=== PATIENT | female | born 1995 | race Caucasian/White ===

== ENCOUNTER → 2017-06-18 | Outpatient (CLI) | payer OTHER ==
[~2017-06-18] MED LIST: AMPH20TA2 PO; BCPILLS PO
== END | disposition home or self-care (01) ==
LOC: C.LABSPEC 13:14
PROVIDERS: ATTEND Obstetrics & Gynecology
DX: Z34.01 Encounter for supervision of normal first pregnancy, first trimester (principal); Z3A.00 Weeks of gestation of pregnancy not specified

== ENCOUNTER → 2017-06-29 | Outpatient (CLI) | payer OTHER | END | disposition home or self-care (01) | LOC: C.PAPS 13:34 | PROVIDERS: ATTEND Obstetrics & Gynecology | DX: Z34.01 Encounter for supervision of normal first pregnancy, first trimester (principal) ==

== ENCOUNTER → 2017-06-29 | Outpatient (CLI) | payer OTHER ==
[2017-06-29 13:20] LABS: BASO % 0.3 %; BASO ABS # 0.03 K/uL (0-0.2); EOS % 2.1 %; EOS ABS # 0.19 K/uL (0-0.5); HEMATOCRIT 37.4 % (37-47); HEMOGLOBIN 13.2 g/dL (12.0-16.0); IG# 0.03 K/uL (0.00-0.02); LYMPH % 24.5 %; LYMPH ABS # 2.17 K/uL (1.2-3.4); MEAN CELL VOLUME 85.2 fL (80-100); MEAN CORPUSCULAR HEMOGLOBIN 30.1 pg (25-34); MEAN CORPUSCULAR HGB CONC 35.3 g/dl (32-36); MEAN PLATELET VOLUME 9.8 fL (7.4-10.4); MONO % 7.3 %; MONO ABS # 0.65 K/uL (0.11-0.59); NEUT % 65.5 %; PLATELET COUNT 290 K/uL (130-400); RED CELL DISTRIBUTION WIDTH CV 12.7 % (11.5-14.5); RED CELL DISTRIBUTION WIDTH SD 39.5 fL (36.4-46.3); WHITE BLOOD COUNT 8.87 K/uL (4.8-10.8)
== END | disposition home or self-care (01) ==
LOC: C.LAB1850 12:29
PROVIDERS: ATTEND Obstetrics & Gynecology
DX: Z34.01 Encounter for supervision of normal first pregnancy, first trimester (principal)

== ENCOUNTER 2019-07-04 21:40 | Inpatient (IN) ==
[2019-07-04] MEDS ORDERED: BENZOCAINE 20% AER SPR 82.5 GM CAN EXT PRN (21:55)
[2019-07-04] MEDS ORDERED: OXYTOCIN 30 UNITS/500 ML BAG IV PRN (21:55)
[2019-07-04] MEDS ORDERED: DIPHTHERIA/TETANUS/PERTUSSIS 0.5 ML SYR/VIAL IM ONE (21:55)
[2019-07-04] MEDS ORDERED: HYDROCORTISONE ACETATE 25 MG SUPP PR PRN (21:55)
[2019-07-04] MEDS ORDERED: SUPERCREAM 0.870% 15 GM JAR EXT PRN (21:55)
--- NOTE | 2019-07-04 22:05 | History & Physical Report ---
Date of Service July 04, 2019 Assessment & Plan (1) No care in current in third trimester: -Patient with term -Active labor History of Present Illness Chief Complaint: Labor Primary Care Provider: Roslyn Jacobo The patient is a 23-year-old 2 para 1 at presumed term who was brought from the emergency room in active labor. The patient presented to the emergency room for evaluation this evening and was being worked up for a kidney stone. The patient received IV narcotics in the emergency room. She had an ultrasound which showed a term , patient was complaining of severe abdominal pain and she was sent to labor and delivery for evaluation. The patient has had no care this the patient has been taking control pills throughout the course of the and she is also been on Adderall. The patient is also a smoker. The patient had a previous vaginal delivery approximately 18 months and had full care with our practice. Her blood type is known to be Rh+. Allergies Allergy/AdvReac Type Severity Reaction Status Date / Time No Known Allergies Verified 07/04/19 20:27 Home Medications Home Medications Medication Instructions Recorded Confirmed Type acetaminophen [Tylenol Extra 1,000 mg PO Q6H PRN MDD 3,000 mg 07/04/19 07/04/19 History Strength] desogestrel-ethinyl estradiol 1 tab PO QAM 07/04/19 07/04/19 History [Apri] dextroamphetamine-amphetamine 30 mg PO QAM 07/04/19 07/04/19 History [Adderall XR] dextroamphetamine-amphetamine 20 mg PO QPM 07/04/19 07/04/19 History [Adderall] lansoprazole [Prevacid] 15 mg PO QAM 07/04/19 07/04/19 History Patient History Medical History (Updated 07/04/19 @ 22:01 by Dm Phan Jr, MD, FACOG) ADHD Encounter for pre-operative examination No significant past medical history Premature rupture of membranes Supervision of normal intrauterine in primigravida (spontaneous vaginal delivery) Surgical History History of tonsillectomy Social History Preferred Language: Vietnamese Communication Ability: Effective 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 Beliefs That Will Affect Care: None marital status: Single Current Living Situation: Significant Other Feels Safe at Home: Yes Smoking Status: Never smoker Tobacco Type: cigarettes ; Second Hand Exposure: No ; Hx Alcohol Use: No Hx Substance Use: No Physical Exam Constitutional: WD/WN, vitals as above Gastrointestinal (Abdomen): Abdomen: Gravid vertex positive palpable contractions Genitourinary: Cervix: Fully dilated Results & Data Vital Signs (Past 12 Hours) Vital Signs Pulse BP 07/04/19 21:45 88 125/87 Coding Level of Care Code 44112 Initial Inpt Care Lvl 3 Diagnoses No care in current in third trimester O09.33
--- NOTE | 2019-07-04 22:06 | Delivery Summary ---
Vaginal Delivery Summary Date of Service July 04, 2019 Vaginal Delivery Summary Findings: Viable female infant with Apgars of 8 and 9. Patient delivered spontaneously over a small midline laceration. Meconium fluid and nuchal cord x1. Cord gases and cord blood samples obtained. Midline laceration repaired with 4-0 Vicryl in a routine fashion. Estimated blood loss 300 cc. Labor course: The patient is a 23-year-old 2 para 1 at presumed term who was brought from the emergency room in active labor. The patient presented to the emergency room for evaluation this evening and was being worked up for a kidney stone. The patient received IV narcotics in the emergency room. She had an ultrasound which showed a term , patient was complaining of severe abdominal pain and she was sent to labor and delivery for evaluation. The patient has had no care this the patient has been taking control pills throughout the course of the and she is also been on Adderall. The patient is also a smoker. The patient had a previous vaginal delivery approximately 18 months and had full care with our practice. Her blood type is known to be Rh+. Upon arrival on labor and delivery the patient had an uncontrollable urge to push. She pushed and spontaneously delivered a viable female infant. Nuchal cord x1 was noted. Some meconium fluid was noted cord was clamped and cut baby with good spontaneous cry terminating any meconium resuscitation. Cord gases and cord blood samples obtained placenta was delivered spontaneously and sent for pathological evaluation. Inspection of the perineum showed a small midline laceration which was repaired with interrupted 4-0 Vicryl [id number] sutures. Estimated blood loss 300 cc. Sponge and needle count was correct. Urine drug screen was not sent as the patient received IV narcotics in the emergency room.
[2019-07-04 22:25] LABS: Base Excess Cord Arterial Bld -4.4 mEq/L (-9-1.8); CO2 Cord Arterial Blood 46 mmHg (39.1-73.5); HCO3 Cord Arterial Blood 22 mmol/L (19.7-28.5); PO2 Cord Arterial Blood 29 mmHg (4.1-31.7)
[2019-07-04 22:29] LABS: Base Excess Cord Venous Blood -2.1 mEq/L (-7.7-1.9); Cord Venous Blood HCO3 21 mmol/L (18.4-26.8); Cord Venous Blood PCO2 30 mmHg (30.4-57.2); Cord Venous Blood PO2 56 mmHg (14.1-43.3); Cord Venous Blood pH 7.45 (7.20-7.44)
[2019-07-04 23:32] LABS: Hepatitis B Surface Antigen Neg (Neg)
[2019-07-05] LABS: Hepatitis C IgG 13Yrs+Old_Rflx Neg (Neg)
[2019-07-05] MEDS: ACETAMINOPHEN 325 MG TAB PO PRN ×2 (03:15→12:33)
[2019-07-05] MEDS: IBUPROFEN 600 MG TAB PO PRN ×3 (04:18→19:54)
--- NOTE | 2019-07-05 07:27 | Obstetrical Progress Note ---
Date of Service July 05, 2019 Assessment & Plan (1) No care in current in third trimester: - feeling well this AM - baby doing well - Social Service consult today - routine care Subjective Ambulation: ambulating normally Voiding: no voiding problems Physical Exam Constitutional WD/WN, vitals as above Gastrointestinal (Abdomen) Fundus firm below umbilicus Musculoskeletal No deep calf tenderness Results & Data Vital Signs (Past 12 Hours) Vital Signs Temp Pulse Pulse Resp BP BP Pulse Ox 07/05/19 04:10 97.5 F L 86 16 140/87 97 07/05/19 01:10 98.1 F 88 16 133/77 97 07/04/19 23:48 98.1 F 96 H 18 137/85 07/04/19 23:15 88 20 132/88 07/04/19 22:45 87 18 142/83 H 07/04/19 22:31 82 20 141/80 H 07/04/19 22:17 96 H 18 145/81 H 07/04/19 22:01 94 H 18 144/85 H 07/04/19 22:00 98.2 F 88 18 125/87 07/04/19 21:45 98.2 F 88 20 125/87
[2019-07-05] MEDS: PRENATAL VITAMIN 1 TAB PO SCH (08:35)
[2019-07-05] MEDS: DOCUSATE SODIUM 100 MG CAP PO SCH ×2 (08:35→19:54)
[2019-07-05] MEDS: FERROUS SULFATE 325 MG TAB PO SCH (08:35)
[2019-07-05] MEDS ORDERED: bisacodyL 5 MG TABEC PO SCH (20:00)
[2019-07-06] MEDS: ACETAMINOPHEN 325 MG TAB PO PRN ×2 (03:05→13:00)
[2019-07-06 06:13] LABS: Hematocrit (blood only) 26.7 % (37-47); Hemoglobin 8.8 g/dL (12.0-16.0)
[2019-07-06] MEDS: DOCUSATE SODIUM 100 MG CAP PO SCH (08:30)
[2019-07-06] MEDS: PRENATAL VITAMIN 1 TAB PO SCH (08:30)
[2019-07-06] MEDS: FERROUS SULFATE 325 MG TAB PO SCH (08:30)
--- NOTE | 2019-07-06 08:39 | Obstetrical Progress Note ---
Date of Service July 06, 2019 Assessment & Plan (1) Normal delivery: stable, ready to go home, instructions reviewed, plan 6wk pp check up. has now failed on ocps x 2 and would like to consider some other form of control, i mentioned iud, she asked about sterilization. rubella not drawn but immune 2018. rh pos, breast feeding going well. Day #:: 2 Subjective Ambulation: ambulating normally Voiding: no voiding problems Diet Tolerance:: regular diet Lochia:: Small Feeding Type:: breast feeding doing well, still in shock. asks about how she could not have known. she never felt mvmt but says with her son had hard time feeling him move. she and partner are happy. ready to go home. Physical Exam Constitutional WD/WN, vitals as above Respiratory normal respiratory effort, lungs clear to auscultation Cardiovascular Rate/Rhythm: regular rate and regular rhythm Gastrointestinal (Abdomen) Inspection/Auscultation: abdomen normal to inspection Percussion/Palpation: abdomen soft fundus firm 2 cm below umbilicus Musculoskeletal nt calves no edema Neurologic grossly normal Psychiatric A+Ox3, euthymic affect Results & Data Vital Signs (Past 12 Hours) Vital Signs Temp Pulse Resp BP Pulse Ox 07/06/19 07:40 98.1 F 83 16 120/79 98 07/05/19 23:40 97.7 F 95 H 18 120/75 98
[2019-07-11 08:25] LABS: Chlamydia Trach RNA NOT DETECTED (NOT DETECTED); GC (Neis gonorrhoeae) RNA NOT DETECTED (NOT DETECTED)
== END 2019-07-06 18:50 | disposition home or self-care (01) | DRG 807 ==
LOC: OPB 21:40 → 4S1 21:41 → 4N 07-05 00:38

== ENCOUNTER 2023-10-18 11:41 | Inpatient (IN) ==
[2023-10-19] MEDS ORDERED: OXYTOCIN 30 UNITS/NSS 30 UNITS/500 ML BAG IV PRN (19:07)
[2023-10-19] MEDS ORDERED: LIDOCAINE 1% LOCAL 20 ML VIAL INFIL PRN (19:07)
--- NOTE | 2023-10-19 19:12 | History & Physical Report ---
Date of Service October 19, 2023 Assessment & Plan (1) 39 weeks gestation of : (2) Obesity affecting : (3) Encounter for elective induction of labor: Plan admit, iv, labs. will plan pitocin and arom. current acuity on unit will need to delay induction for now. pt aware. will work to get her admitted and go from there. Admission and Anticipated Discharge Date Admission Date: October 19, 2023 History of Present Illness Chief Complaint: planned induction Primary Care Provider: Roslyn Jacobo 28yo at 39+wks presents for elective induction of labor. Denies rom, vb. +FM. No ctx. Had u/s due to possible concern for abnl brain anatomy on 09/16 and efw 89% and pt concerned about size of baby as issue and so asked for elective induction. MFM did the u/s and did not felt normal ENDBAND SIZER anatomy. PNC uncomplicated PNL rh pos, ri, gbs neg OBH: x 2 GYNH: nl paps, no stds Allergies Allergy/AdvReac Type Severity Reaction Status Date / Time No Known Drug Allergies Allergy Verified 10/17/23 10:54 Home Medications Medication Instructions Recorded Confirmed Type vit no.[id number] 500 mg PO DAILY 03/07/23 10/19/23 History [Classic ] Tums Anti-Gas/Antacid PO PRN Acid Reflux 10/19/23 History Patient History Medical History Varicella vaccination ADHD Encounter for pre-operative examination Premature rupture of membranes Surgical History History of tonsillectomy Family History (Updated 10/19/23 @ 19:40 by Jalyn López, HELENA) Grandmother (Maternal) Osteoporosis Dyslipidemia Father Heart disease Other Breast cancer Diabetes Denies family history of Ovarian cancer Colorectal cancer Social History (Updated 03/07/23 @ 13:04 by Zoe Veloz) Smoking Status: Former smoker Tobacco Type: E-cigarettes / Vaping Smoking End Date: 03/14; Second Hand Exposure: No; Do You Dip or Chew Tobacco: No; Hx Alcohol Use: No Hx Substance Use: No Preferred Language: Pashto Communication Ability: Effective Visual Impairment: No Limitations Hearing Ability: Normal Film Editor Required: No Beliefs That Will Affect Care: None marital status: marital status details: Andres Soto (26) [phone] Current Living Situation: Spouse and Family Current Living Situation Comment: lives with spouse, children, dog current occupational status: other current occupation: homemaker Other Information That Helps Us Care for You: No Feels Safe at Home: Yes Safety Concerns: Feels Safe At This Time Assistive Devices: Glasses Review of Systems as per Subjective / HPI Physical Exam Constitutional: WD/WN, vitals as above Respiratory: normal respiratory effort, lungs clear to auscultation Cardiovascular: Rate/Rhythm: regular rate and regular rhythm Gastrointestinal (Abdomen): soft gravid nt efw 7-8# Musculoskeletal: no edema nontender calves Neurologic: grossly normal Psychiatric: A+Ox3, euthymic affect Genitourinary: OB Exam Monitor Tracing: + external FHT monitor used, + external uterine monitor used, + category I and + normal FHT variability Coding Level of Care Code None Diagnoses 39 weeks gestation of Z3A.39 Obesity affecting O99.210 Encounter for elective induction of labor Z34.90
[2023-10-19 19:56] LABS: Hematocrit (blood only) 33.8 % (37.0-47.0); Hemoglobin 11.8 g/dl (12.0-16.0); Mean Corpuscular Hemoglobin 30.1 pg (25.0-34.0); Mean Corpuscular Hgb Conc 34.9 g/dL (32.0-36.0); Mean Corpuscular Volume 86.2 fL (80.0-100.0); Mean Platelet Volume 10.9 fL (9.4-12.4); Platelet Count 230 K/uL (130-400); RDW Coefficient of Variation 13.2 % (11.5-14.5); RDW Standard Deviation 40.7 fL (36.4-46.3); Red Blood Count 3.92 M/uL (4.20-5.40); White Blood Count 14.38 K/ul (4.8-10.8)
[2023-10-19 20:38] LABS: Albumin Level 3.9 gm/dl (3.4-5.0); Bilirubin Direct 0.1 mg/dl (0-0.2); Bilirubin,Total 0.7 mg/dl (0.2-1.0); Calcium 9.8 mg/dl (8.6-10.3); Potassium 3.7 mmol/L (3.5-5.1)
[2023-10-19 20:44] LABS: Albumin Globulin Ratio 1.6 (0.9-2); BUN Creatinine Ratio 16.7 (10-20); Creatinine Clr Calc Pharmacy 206.5 ml/min; Est GFR (African American) 148.8 ml/min; Est GFR (Non-African American) 128.4 ml/min; Globulin 2.4 gm/dl (2.5-4.0); Total Protein 6.3 gm/dl (6.0-8.3)
[2023-10-19] MEDS ORDERED: SODIUM CHLORIDE 0.9% 250 ML IV PRN (21:15)
[2023-10-19] MEDS: LACTATED RINGER'S 1,000 ML IV PRN (22:43)
[2023-10-19] MEDS: OXYTOCIN 30 UNITS/NSS 30 UNITS/500 ML BAG IV PRN (22:46)
--- NOTE | 2023-10-19 22:47 | Obstetrical Progress Note ---
Date of Service October 19, 2023 Assessment & Plan (1) Encounter for elective induction of labor: (2) 39 weeks gestation of : (3) Obesity affecting : Plan will begin pitocin. arom in future. fhts categ 1. Admission and Anticipated Discharge Date Admission Date: October 19, 2023 Subjective now able to start induction Physical Exam Genitourinary: Manual OB Exam: + cervical dilation (2-3cm), + cervical effacement (75%) and + station -2 OB Exam Monitor Tracing: + external FHT monitor used, + external uterine monitor used (irreg), + category I and + normal FHT variability Results & Data Vital Signs (Past 12 Hours) Vital Signs Temp Pulse Resp BP 10/19/23 19:32 120 H 148/81 H 10/19/23 19:30 18 10/19/23 19:30 99.0 F 18 10/19/23 19:27 115 H 145/104 H 10/19/23 19:24 99.0 F 18 PG Care Time/CCT Total # of Minutes Spent Total Time Spent with Patient: Total time spent is greater than 50% in coordination of care (as documented) at patient's floor/unit and/or counseling patient: Coding Level of Care Code None Diagnoses Encounter for elective induction of labor Z34.90 39 weeks gestation of Z3A.39 Obesity affecting O99.210
[2023-10-20] MEDS ORDERED: ePHEDrine sulfate 50 MG/ML AMP IV PRN (00:26)
[2023-10-20] MEDS ORDERED: SODIUM CHLORIDE 0.9% PF INJ 10 ML VIAL EPI PRN (00:26)
[2023-10-20] MEDS ORDERED: NALBUPHINE HCL INJ 10 MG/ML AMP IV PRN (00:26)
[2023-10-20] MEDS ORDERED: fentaNYL citrate PF 100 MCG/2 ML VIAL EPI PRN (00:26)
[2023-10-20] MEDS ORDERED: ROPIVACAINE 0.5% PF 5 MG/ML 20 ML VIAL EPI PRN (00:26)
[2023-10-20] MEDS ORDERED: BUPIVACAINE 0.25% PF 30 ML VIAL EPI PRN (00:26)
[2023-10-20] MEDS ORDERED: diphenhydrAMINE 50 MG/ML VIAL IV PRN ×2 (00:26→01:36)
[2023-10-20] MEDS ORDERED: NALOXONE HCL 1 MG in SODIUM CHLORIDE 0.9% 1,000 ML IV PRN (00:26)
[2023-10-20] MEDS ORDERED: NALOXONE HCL 0.4 MG/1 ML VIAL/CARP IV PRN (00:26)
[2023-10-20] MEDS ORDERED: LIDOCAINE 2% MPF LOCAL 5 ML VIAL EPI PRN (00:26)
[2023-10-20] MEDS ORDERED: fentANYL 2 MCG/ML BUPIVacaine 0.125%-NSS 100ML BAG EPI PRN (00:26)
--- NOTE | 2023-10-20 00:26 | Anesthesiology Consultation ---
Date of Service October 20, 2023 Assessment & Plan Chart Review Chart Review: Patient NOT seen in Pre Admission Testing and Acceptable Risk for Labor Epidural Consults Requested none History Height/Weight Height: 5 ft 7 in Weight: 118.388 kg Allergies Allergy/AdvReac Type Severity Reaction Status Date / Time No Known Drug Allergies Allergy Verified 10/17/23 10:54 Medications Home Medications Medication Instructions Recorded Confirmed Last Taken vit no.535-[id number]-[id number] 500 mg PO DAILY 03/07/23 10/19/23 10/18/23 21:00 [Classic ] Tums Anti-Gas/Antacid PO PRN Acid Reflux 10/19/23 10/19/23 16:00 Active Medications Generic Name Dose Route Start Last Admin Trade Name Freq PRN Reason Stop Dose Admin Oxytocin 30 units in 500 mls @ 3 mls/hr 10/19/23 19:07 10/19/23 23:30 Pitocin 30 Units/Nss IV 10/21/23 19:06 0.18 units/hr .Q24H PRN 3 mls/hr Labor Induction/Augmentation Titration Protocol 0.18 UNITS/HR Lactated Ringer's 1,000 mls @ 125 mls/hr 10/19/23 19:07 10/19/23 22:43 Lr IV 10/21/23 19:06 125 mls/hr .Q8H PRN Administration L&D Protocol Protocol Past Medical History Medical History Varicella vaccination ADHD Encounter for pre-operative examination Premature rupture of membranes Past Family History Family History Grandmother (Maternal) Osteoporosis Dyslipidemia Father Heart disease Other Breast cancer Diabetes Denies family history of Ovarian cancer Colorectal cancer Past Surgical History Surgical History History of tonsillectomy Social History Smoking Status: Former smoker tobacco type: cigarettes Do You Dip or Chew Tobacco: No Smoking End Date: 03/14 Hx Alcohol Use: No Hx Substance Use: No substance use type: does not use Physical Exam Vital Signs Last Vital Signs Temp 98.2 F 10/19/23 23:00 Pulse 100 H 10/20/23 00:09 Resp 18 10/19/23 23:00 BP 122/76 10/20/23 00:09 Testing Laboratory Results 10/19/23 19:41 10/19/23 19:41 Blood Type O Positive 10/19/23 19:41 Antibody Screen NEGATIVE 10/19/23 19:41
[2023-10-20] MEDS: BUPIVACAINE 0.25% PF 30 ML VIAL ONE (01:04)
[2023-10-20] MEDS: SODIUM CHLORIDE 0.9% PF INJ 10 ML VIAL ONE (01:04)
[2023-10-20] MEDS: fentANYL 2 MCG/ML BUPIVacaine 0.125%-NSS 100ML BAG ONE (01:04)
[2023-10-20] MEDS: LIDOCAINE 2%/EPINEPHRINE 1:200,000 20 ML PF ONE (01:04)
--- NOTE | 2023-10-20 01:35 | Labor Progress Brief Note ---
Date of Service October 20, 2023 Subjective pt had +test dose per anesthesia and feeling very anxious. she has asked for epidural to be turned off and anesth aware. she would like to hold off on furthering her induction at this time as she feels numb. Assessment & Plan (1) Encounter for elective induction of labor: (2) 39 weeks gestation of : (3) Obesity affecting : Plan pt desires to give time to let her +test dose wear off, she asks about meds to relax her and offered iv meds like benadryl or phenergan but not sure how would respond. based on fhts that has mod variab but no accels would prefer not to give any narcotic. will hold off on arom as is her desire as she does not feel she can move forward with induction with the way she feels right now. Admission and Anticipated Discharge Date Admission Date: October 19, 2023 Physical Exam Constitutional: WD/WN, vitals as above Genitourinary: OB Exam Monitor Tracing: + external FHT monitor used, + external uterine monitor used (q2-3), + category I and + normal FHT variability Results & Data Vital Signs (Past 12 Hours) Vital Signs Temp Pulse Resp BP Pulse Ox 10/20/23 01:25 134 H 100 10/20/23 01:24 133 H 130/62 10/20/23 01:20 134 H 100 10/20/23 01:19 141 H 140/90 10/20/23 01:18 150 H 89 L 10/20/23 01:15 131 H 99 10/20/23 01:14 133 H 156/85 H 10/20/23 01:11 121 H 125/72 10/20/23 01:10 129 H 118/73 100 10/20/23 01:09 108 H 115/70 10/20/23 01:08 117 H 110/66 10/20/23 01:07 116 H 109/63 10/20/23 01:06 116 H 119/69 10/20/23 01:05 111 H 104/57 L 100 10/20/23 01:04 112 H 90/50 L 10/20/23 01:03 125 H 103/54 L 10/20/23 01:02 122 H 101/52 L 10/20/23 01:01 122 H 99/55 L 10/20/23 01:00 122 H 100 10/20/23 00:59 137 H 114/53 L 10/20/23 00:58 150 H 122/55 L 10/20/23 00:57 141 H 130/60 10/20/23 00:55 149 H 127/57 L 98 10/20/23 00:50 143 H 97 10/20/23 00:45 147 H 99 10/20/23 00:43 144 H 145/92 H 10/20/23 00:42 116 H 141/88 H 10/20/23 00:41 104 H 143/96 H 10/20/23 00:40 106 H 99 10/20/23 00:39 114 H 144/93 H 10/20/23 00:35 126 H 100 10/20/23 00:30 103 H 99 10/20/23 00:09 100 H 122/76 10/19/23 23:39 101 H 123/71 10/19/23 23:00 18 10/19/23 23:00 98.2 F 18 10/19/23 22:48 93 H 121/75 10/19/23 19:32 120 H 148/81 H 10/19/23 19:30 18 10/19/23 19:30 99.0 F 18 10/19/23 19:27 115 H 145/104 H 10/19/23 19:24 99.0 F 18 Coding Level of Care Code None Diagnoses Encounter for elective induction of labor Z34.90 39 weeks gestation of Z3A.39 Obesity affecting O99.210
[2023-10-20] MEDS ORDERED: PROMETHAZINE 25 MG/51 ML BAG IV PRN (01:36)
[2023-10-20] MEDS: ePHEDrine sulfate 50 MG/ML AMP ONE (03:16)
[2023-10-20] MEDS: LIDOCAINE 2%/EPINEPHRINE 1:200,000 20 ML PF EPI STA (03:16)
[2023-10-20] MEDS: fentaNYL citrate PF 100 MCG/2 ML VIAL ONE (03:16)
[2023-10-20] MEDS: BUPIVACAINE 0.25% PF 30 ML VIAL EPI STA (03:16)
[2023-10-20] MEDS: fentaNYL citrate PF 100 MCG/2 ML VIAL EPI STA (03:16)
[2023-10-20] MEDS: SODIUM CHLORIDE 0.9% PF INJ 10 ML VIAL EPI STA (03:16)
--- NOTE | 2023-10-20 05:35 | Delivery Summary ---
Vaginal Delivery Summary Date of Service October 20, 2023 Vaginal Delivery Summary The patient dilated to complete and pushed to deliver a viable male infant Apgars 8 and 9 via over intact perineum. Mouth and nose bulb suctioned at perineum. Shoulders and body delivered with ease. Infant was vigorous and crying at . Cord clamped at 30 seconds of life and infant to maternal abdomen where the cord was then doubly clamped and cut. Placenta delivered spontaneously and intact, three-vessel cord. Hemostasis achieved with dilute pitocin and uterine massage. Small separation at posterior vagina not bleeding and no sutures placed. Cervix and sulci intact. qBL 455 cc. Mother and baby stable in recovery. [facility] Vaginal Delivery Charge Delivery Type Details:
[2023-10-20] MEDS ORDERED: HYDROCORTISONE ACETATE 25 MG SUPP PR PRN (05:46)
[2023-10-20] MEDS ORDERED: OXYTOCIN 30 UNITS/NSS 30 UNITS/500 ML BAG IV PRN (05:46)
[2023-10-20] MEDS ORDERED: CALCIUM CARBONATE 500 MG CHEWABLE TAB PO PRN (05:46)
[2023-10-20] MEDS ORDERED: BENZOCAINE 20% SPRY 85 APPLN/85 GM CAN EXT PRN (05:46)
[2023-10-20] MEDS ORDERED: oxyCODONE/ACETAMINOPHEN 5mg/325mg TAB PO PRN (05:46)
[2023-10-20] MEDS: ACETAMINOPHEN 325 MG TAB PO PRN (06:05)
[2023-10-20] MEDS: DIPHTHER/TETAN/PERTUS Vaccine (Tdap, Adol/Adult) 0.5mL IM ONE (06:12)
[2023-10-20] MEDS: OXYTOCIN 20 UNITS/LR 1,002 ML IV SCH (06:27)
--- NOTE | 2023-10-20 07:56 | Anesthesia Procedure Note ---
Date of Service October 20, 2023 Anesthesia Post Epidural Note Vital Signs Vital Signs: Temp Pulse Resp BP Pulse Ox 36.5 C 106 H 16 123/69 97 10/20/23 07:00 10/20/23 07:30 10/20/23 07:00 10/20/23 07:30 10/20/23 05:35 Pain Intensity Head: Pain Intensity: 2 Notes Mental Status: alert / awake / arousable Nausea / Vomiting: adequately controlled Pain: adequately controlled Airway Patency, RR, SpO2: stable & adequate BP & HR: stable & adequate Hydration State: stable & adequate Neuraxial Anesthesia: was administered and sensory block is resolving Anesthetic Complications: no major complications apparent and Pt Satisfied with anesthetic care Epidural: Removed without complications and With tip intact
[2023-10-20] MEDS: PRENATAL VITAMIN 1 TAB PO SCH (09:39)
[2023-10-20] MEDS: DOCUSATE SODIUM 100 MG CAP PO SCH (09:39)
[2023-10-20] MEDS: IBUPROFEN 600 MG TAB PO PRN (09:39)
[2023-10-21 01:56] VITALS: PULSE 81; TEMP 98.1; O2SAT 97
[2023-10-21 04:53] VITALS: BP 116/68; RESP 18
--- NOTE | 2023-10-21 09:03 | Obstetrical Progress Note ---
Date of Service October 21, 2023 Assessment & Plan (1) Encounter for elective induction of labor: ppd 1 no ext pain, home Subjective Ambulation: ambulating normally Voiding: no voiding problems Passing Gas:: Yes Diet Tolerance:: regular diet Lochia:: Small Feeding Type:: breast feeding Current Pain Level(1-10): 0 Physical Exam Constitutional WD/WN, vitals as above well developed and well nourished Respiratory normal respiratory effort, lungs clear to auscultation normal respiratory effort Cardiovascular RRR, no murmur, no edema Gastrointestinal (Abdomen) normal bowel sounds, soft, nontender, no hepatosplenomegaly Results & Data Vital Signs (Past 12 Hours) Vital Signs Temp Pulse Resp BP Pulse Ox O2 Del Method 10/21/23 04:30 98.1 F 81 18 116/68 97 Room Air 10/21/23 00:45 98.1 F 81 16 115/66 97 Room Air
[2023-10-21] MEDS ORDERED: bisacodyL 5 MG TABEC PO SCH (20:00)
== END 2023-10-21 13:45 | disposition home or self-care (01) | DRG 807 ==
LOC: 4S1 10-19 19:04 → 4E1 10-20 08:34